=== PATIENT | male | born 1950 | race Caucasian/White ===

== ENCOUNTER 2024-04-28 06:16 | Day surgery (SDC) | payer BC, SELFPAY | END 2024-04-28 14:06 | disposition home or self-care (01) | LOC: GI 06:16 | PROVIDERS: ATTENDING PHYSICIAN Internal Medicine Gastroenterology | DX: K22.70 Barrett's esophagus without dysplasia (principal); K29.70 Gastritis, unspecified, without bleeding; K22.89 Other specified disease of esophagus; K44.9 Diaphragmatic hernia without obstruction or gangrene; K31.7 Polyp of stomach and duodenum; K31.89 Other diseases of stomach and duodenum; R12 Heartburn | CPT/HCPCS: 43239; 88305; 88342 ==

== ENCOUNTER 2025-02-09 06:24 | Day surgery (SDC) | payer OTHER, SELFPAY | END 2025-02-09 08:32 | disposition home or self-care (01) | LOC: GI 06:24 | PROVIDERS: ATTENDING PHYSICIAN Internal Medicine Gastroenterology | DX: Z12.11 Encounter for screening for malignant neoplasm of colon (principal); K64.8 Other hemorrhoids; K57.30 Diverticulosis of large intestine without perforation or abscess without bleeding; K63.5 Polyp of colon; Z80.0 Family history of malignant neoplasm of digestive organs; Z86.0100 Personal history of colon polyps, unspecified | CPT/HCPCS: 45380; 88305 ==